=== PATIENT | female | born 1980 | race Caucasian/White ===

== ENCOUNTER 2020-11-09 13:57 | Outpatient (CLI) | payer OTHER, SELFPAY ==
--- NOTE | ~2020-11-09 | CT_ITS ---
EXAMINATION: CT sinus wo con DATE: 11/09/2020 14:26 INDICATION: Deviated septum TECHNIQUE: Computed tomography (CT) of the paranasal sinuses was performed without contrast. Iterativ e reconstruction technique was employed. Exam dose: 303.09 mGy-cm total exam DLP. COMPARISON: None FINDINGS: There is limited ossification of the nasal septum which appears minimally deviated. There is severe soft tissue swelling of both nasal cavities and bilateral nasal turbinates, with near ly complete opacification of millimeters bilaterally. The ostiomeatal units are completely opacified bilaterally. The frontal sinuses are completely opacified. The ethmoid air cells are nearly completely opacified b ilaterally. There is very prominent mucoperiosteal thickening of both maxillary sinuses and left sphenoid sinus. There is mild soft tissue thickening of the right sphenoid sinus. The mastoid air cells are aerated. Middle and inner ear apparatus appear unremarkable. IMPRESSION: Pansinusitis Severe soft tissue swelling of the nasal cavities, nasal turbinates Opacification of middle meatus and infundibulum bilaterally Reviewed, dictated and finalized at [facility]. Reviewed, dictated and finalized at [facility]
== END 2020-11-09 13:58 | disposition home or self-care (01) ==
LOC: ANHIMG 13:58
PROVIDERS: PCP Emergency Medicine; Visit Provider Emergency Medicine
DX: J34.2 Deviated nasal septum (principal); J01.40 Acute pansinusitis, unspecified
CPT/HCPCS: 70486